=== PATIENT | male | born 1945 | race Caucasian/White ===

== ENCOUNTER → 2025-04-29 23:59 | Outpatient (BNV) | payer MEDICARE, MEDICAID, SELFPAY | PROVIDERS: PCP Family Medicine; Visit Provider Psychiatry & Neurology Neurology | DX: G56.03 Carpal tunnel syndrome, bilateral upper limbs (principal); G56.22 Lesion of ulnar nerve, left upper limb | CPT/HCPCS: 95886; 95910 ==